=== PATIENT | male | born 1965 | race African-American/Black ===

== ENCOUNTER 2022-02-08 16:54 | Inpatient (IN) | payer BC ==
[~2022-02-08] VITALS: Ht 170.2 cm; Wt 90.7 kg
[2022-02-08 17:44] LABS: HEMATOCRIT 36.7 % (36.7-47.1); MEAN CORPUSCULAR HEMOGLOBIN 32.3 uug (23.8-33.4); MEAN CORPUSCULAR VOLUME 96.8 fL (73.0-96.2); PLATELET COUNT (AUTO) 108 K/uL (152-348)
[2022-02-08 17:50] LABS: CREATININE 1.6 mg/dL (0.6-1.3); POTASSIUM 4.2 mmol/L (3.5-5.1)
[2022-02-08 18:02] LABS: BILIRUBIN,TOTAL 0.8 mg/dL (0.2-1.0); TOTAL PROTEIN, SERUM 8.1 g/dL (6.4-8.2)
[2022-02-08] MEDS ORDERED: REMEDY ESSENTIAL ZINC PASTE 113 GM TP PRN (21:00)
[2022-02-08] MEDS ORDERED: ACETAMINOPHEN 325 MG TABLET PO PRN (21:00)
[2022-02-08] MEDS ORDERED: ASPIRIN 325 MG TABLET PO ONE (21:00)
[2022-02-08] MEDS ORDERED: NITROGLYCERIN 0.4 MG/TAB BOTTLE SL PRN (21:00)
[2022-02-08] MEDS ORDERED: HYDROCODONE/APAP 5-325MG TABLET PO PRN (21:00)
[2022-02-08] MEDS ORDERED: ONDANSETRON 4 MG/2 ML VIAL IV PRN (21:00)
[2022-02-08] MEDS ORDERED: TADA5TAB2 PO (22:07)
[2022-02-08] MEDS ORDERED: ATOR10TA PO (22:07)
[2022-02-08] MEDS ORDERED: CITA10TA17 PO (22:07)
[2022-02-08] MEDS ORDERED: TRAZ-182 PO (22:07)
[2022-02-08] MEDS ORDERED: CLOP75TA15 PO (22:07)
[2022-02-08 22:27] LABS: *BILIRUBIN,URIN 1+ (NEGATIVE); *BLOOD, URINE NEGATIVE (NEGATIVE); *CLARITY,URINE CLEAR (CLEAR); *COLOR,URINE DARK YELLOW (YELLOW); *KETONES,URINE NEGATIVE (NEGATIVE); LEUKOCYTE ESTERASE ,URINE NEGATIVE (NEGATIVE); NITRITE, URINE NEGATIVE (NEGATIVE); PH,URINE 5.5 (5.0-8.0); UGLUCOSE NEGATIVE (NEGATIVE)
[2022-02-09] MEDS: ASPIRIN 325 MG TABLET PO ONE ×2 (00:17→00:22)
[2022-02-09] MEDS: MORPHINE SULFATE 2 MG/1 ML DISP.SYRIN IV PRN ×5 (00:17→19:25)
[2022-02-09 01:00] VITALS: BP 155/87
[2022-02-09 01:16] LABS: FERRITIN 21 ng/mL (26-388)
[2022-02-09 04:00] VITALS: BP 131/72
[2022-02-09] MEDS: PANTOPRAZOLE SODIUM 40 MG TABLET.DR PO SCH (06:35)
[2022-02-09 07:30] LABS: HEMATOCRIT 36.6 % (36.7-47.1); MEAN CORPUSCULAR HEMOGLOBIN 32.2 uug (23.8-33.4); MEAN CORPUSCULAR VOLUME 96.4 fL (73.0-96.2); PLATELET COUNT (AUTO) 98 K/uL (152-348)
[2022-02-09 07:51] LABS: CREATININE 1.4 mg/dL (0.6-1.3); MAGNESIUM 1.5 mg/dL (1.8-2.4)
[2022-02-09 08:00] LABS: THYROID STIMULATING HORMONE 1.556 mIU/mL (0.358-3.740)
[2022-02-09] MEDS ORDERED: HEPARIN SODIUM,PORCINE 5,000 UNITS/ML VIAL SQ SCH (09:00)
[2022-02-09] MEDS ORDERED: ASPIRIN 81 MG TAB.CHEW PO SCH (09:00)
[2022-02-09] MEDS ORDERED: CITALOPRAM 10 MG TABLET PO SCH (09:00)
[2022-02-09] MEDS ORDERED: CLOPIDOGREL 75 MG TABLET PO SCH (09:00)
[2022-02-09] MEDS: MAGNESIUM SULFATE/D5W 100 ML IV SCH ×2 (10:27→11:41)
[2022-02-09] MEDS ORDERED: OMEP40CA21 PO (11:00)
[2022-02-09] MEDS ORDERED: ISOS60TA72 PO (11:00)
[2022-02-09] MEDS ORDERED: BUPR-319 PO (11:00)
[2022-02-09] MEDS ORDERED: AMLO-212 PO (11:00)
[2022-02-09] MEDS ORDERED: RANO10003 PO (11:00)
[2022-02-09] MEDS ORDERED: RISP1TAB7 PO (11:00)
[2022-02-09] MEDS ORDERED: PRAZ1CAP5 PO (11:00)
[2022-02-09] MEDS ORDERED: GABA300C PO (11:00)
[2022-02-09] MEDS ORDERED: BUPR1FIL5 SL (11:01)
[2022-02-09 11:02] VITALS: BP 104/56
[2022-02-09 11:07] LABS: *AMPHETAMINE, URINE NEGATIVE (NEGATIVE); *CANNABINOID, URINE NEGATIVE (NEGATIVE); *COCCAINE, URINE NEGATIVE (NEGATIVE); *OPIATE, URINE POSITIVE (NEGATIVE); *PHENCYCLIDINE SCREEN,URINE NEGATIVE (NEGATIVE)
[2022-02-09 15:09] VITALS: BP 109/49
[2022-02-09 16:21] LABS: EOSINOPHILS % (MANUAL) 4 % (0-8); LYMPHOCYTES % (MANUAL) 45 % (20-40); MONOCYTES % (MANUAL) 9 % (2-10); NEUTROPHILS % (MANUAL) 42 % (42-75)
[2022-02-09 20:00] VITALS: BP 104/62
[2022-02-09] MEDS ORDERED: ATORVASTATIN 10 MG TABLET PO SCH (21:00)
[2022-02-10] MEDS: MORPHINE SULFATE 2 MG/1 ML DISP.SYRIN IV PRN ×4 (00:33→18:03)
[2022-02-10 04:00] VITALS: BP 110/72
[2022-02-10] MEDS: PANTOPRAZOLE SODIUM 40 MG TABLET.DR PO SCH (06:09)
[2022-02-10 07:08] LABS: HEMATOCRIT 35.4 % (36.7-47.1); MEAN CORPUSCULAR HEMOGLOBIN 32.5 uug (23.8-33.4); PLATELET COUNT (AUTO) 84 K/uL (152-348)
[2022-02-10 07:25] LABS: CREATININE 1.4 mg/dL (0.6-1.3); MAGNESIUM 1.7 mg/dL (1.8-2.4)
[2022-02-10] MEDS ORDERED: CLOPIDOGREL 75 MG TABLET PO ONE (08:00)
[2022-02-10] MEDS ORDERED: CITALOPRAM 20 MG TABLET PO SCH (09:00)
[2022-02-10] MEDS: MAGNESIUM SULFATE/D5W 100 ML IV SCH ×2 (09:46→10:18)
[2022-02-10] MEDS ORDERED: CLOPIDOGREL 75 MG TABLET PO SCH (11:26)
[2022-02-10 12:07] VITALS: BP 103/53
[2022-02-10 16:06] VITALS: BP 107/45
[2022-02-10 20:00] VITALS: BP 108/56
[2022-02-11] MEDS ORDERED: CLOPIDOGREL 75 MG TABLET PO SCH (09:00)
== END 2022-02-10 20:50 | disposition short-term general hospital (02) | DRG 302 ==
LOC: ER 16:54 → TELE3 22:54 → MEDSURG3 02-09 14:46
PROC: 05H533Z Insertion of Infusion Device into Right Subclavian Vein, Percutaneous Approach (ICD-10-PCS; principal; 2022-02-09)
PROC: B546ZZA Ultrasonography of Right Subclavian Vein, Guidance (ICD-10-PCS; 2022-02-09)
DX: I25.110 Atherosclerotic heart disease of native coronary artery with unstable angina pectoris (principal); N17.0 Acute kidney failure with tubular necrosis; E78.5 Hyperlipidemia, unspecified; I11.0 Hypertensive heart disease with heart failure; Z20.822 Contact with and (suspected) exposure to COVID-19; Z95.1 Presence of aortocoronary bypass graft; E11.9 Type 2 diabetes mellitus without complications; I25.10 Atherosclerotic heart disease of native coronary artery without angina pectoris; E11.42 Type 2 diabetes mellitus with diabetic polyneuropathy; I50.9 Heart failure, unspecified
CPT/HCPCS: 36415; 70030-TC; 70450; 71045; 83550; 83735; 84100; 84443; 84484; 85025; 93005; 93307; 93880; 97161; A4663; A6209; A6213; C1758; G0378; J2270; J3475

== ENCOUNTER 2022-04-15 21:16 | Inpatient (IN) | payer BC ==
[~2022-04-15] VITALS: Ht 175.3 cm; Wt 90.5 kg
[~2022-04-15 21:16] MED LIST: AMLO-212 PO; ATOR10TA PO; BUPR-319 PO; BUPR1FIL5 SL; CITA10TA17 PO; CLOP75TA15 PO; GABA300C PO; ISOS60TA72 PO; OMEP40CA21 PO; PRAZ1CAP5 PO; RANO10003 PO; RISP1TAB7 PO; TADA5TAB2 PO; TRAZ-182 PO
[2022-04-15] MEDS ORDERED: NITROGLYCERIN 0.4 MG/TAB BOTTLE SL ONE (21:30)
[2022-04-15] MEDS ORDERED: NITROGLYCERIN OINT 1 GM PACKET TP ONE (21:30)
--- NOTE | 2022-04-15 21:40 | NUR ---
Pt. BIB [facility] from [facility] c/o on and of chest 8/10 pain, radiating to the left arm. Per paramedics performed EKG and noted NSTEMI. Paramedics admnistered 325mg of aspirin in the field. Pt has Hx of STEMI, HTN, DMII insulin dependent and multiple stents. Pt. c/o SOB upon arrival and placed on 3L Oxygen via nasal cannula. Pt. O2 saturation 99%. Denies N/V.
--- NOTE | 2022-04-15 21:42 | NUR ---
Dr. Mendoza at bedside. MSE in progress.
[2022-04-15] MEDS ORDERED: QUET50TA PO (21:43)
[2022-04-15] MEDS ORDERED: ROSU40TA PO (21:43)
[2022-04-15] MEDS ORDERED: INSU100I26 SQ (21:43)
[2022-04-15] MEDS ORDERED: INSU100V11 SQ (21:43)
[2022-04-15] MEDS ORDERED: THIA100T74 PO (21:43)
[2022-04-15] MEDS ORDERED: BUPR300T52 PO (21:43)
[2022-04-15] MEDS ORDERED: MORPHINE SULFATE 4 MG/1 ML DISP.SYRIN IV ONE (21:45)
[2022-04-15] MEDS ORDERED: ONDA4TAB11 PO (22:05)
--- NOTE | 2022-04-15 22:05 | NUR ---
Patient got up out of bed and right foot IV came out.
[2022-04-15 22:11] LABS: MEAN CORPUSCULAR HEMOGLOBIN 32.2 uug (23.8-33.4); MEAN CORPUSCULAR VOLUME 96.6 fL (73.0-96.2); PLATELET COUNT (AUTO) 69 K/uL (152-348)
[2022-04-15] MEDS ORDERED: LABETALOL HCL 100 MG TABLET PO ONE (22:15)
[2022-04-15 22:24] LABS: CARBON DIOXIDE 28 mmol/L (21-32); CHLORIDE 98 mmol/L (98-107); CREATININE 1.5 mg/dL (0.6-1.3); POTASSIUM 4.7 mmol/L (3.5-5.1); UREA NITROGEN, BLOOD 12 mg/dL (7-18)
[2022-04-15] MEDS ORDERED: MORPHINE SULFATE 4 MG/1 ML DISP.SYRIN ONE (22:32)
[2022-04-15] MEDS ORDERED: LABETALOL HCL 100 MG TABLET ONE (22:32)
[2022-04-15 22:35] LABS: ALANINE AMINOTRANSFERASE 85 U/L (16-63); ALKALINE PHOSPHATASE 284 U/L (50-136); ASPARTATE AMINOTRANSFERASE 47 U/L (15-37); BILIRUBIN,DIRECT 0.2 mg/dL (0.0-0.2); BILIRUBIN,TOTAL 0.4 mg/dL (0.2-1.0); TOTAL PROTEIN, SERUM 7.4 g/dL (6.4-8.2)
[2022-04-15 22:36] LABS: GLUCOSE 607 mg/dL (74-106)
--- NOTE | 2022-04-15 22:37 | NUR ---
Placed IV on left foot 24G.
--- NOTE | 2022-04-15 22:40 | NUR ---
Demetrice from [facility] called to verify patient's arrival. Contact information: [phone] ([place], [employer] #)
[2022-04-15] MEDS ORDERED: POTASSIUM CHLORIDE 20 MEQ TAB.PRT.SR PO ONE (22:45)
[2022-04-15] MEDS ORDERED: INSULIN REGULAR, HUMAN 300 UNIT/3 ML VIAL IV ONE (22:45)
[2022-04-15] MEDS ORDERED: POTASSIUM CHLORIDE 20 MEQ POWDER PACKET ONE (22:52)
[2022-04-15] MEDS ORDERED: INSULIN REGULAR, HUMAN 300 UNIT/3 ML VIAL ONE (22:54)
[2022-04-16 00:11] LABS: *AMPHETAMINE, URINE NEGATIVE (NEGATIVE); *CANNABINOID, URINE NEGATIVE (NEGATIVE); *COCCAINE, URINE NEGATIVE (NEGATIVE); *OPIATE, URINE POSITIVE (NEGATIVE); *PHENCYCLIDINE SCREEN,URINE NEGATIVE (NEGATIVE)
--- NOTE | 2022-04-16 00:56 | NUR ---
Called [facility] for panel call. Dr. Moon customer solutions specialist.
--- NOTE | 2022-04-16 01:00 | NUR ---
Called 3rd fl for TELE bed, given RM 321 (JAMES Sage).
--- NOTE | 2022-04-16 01:06 | NUR ---
Called [facility], Sherrie ([employer] of [employer]) made aware of patient's admission to hospital.
[2022-04-16] MEDS ORDERED: INSULIN REGULAR, HUMAN 300 UNITS/3 ML VIAL SQ PRN (02:00)
[2022-04-16] MEDS ORDERED: DEXTROSE 50% 50 ML DISP.SYRIN IV PRN (02:00)
[2022-04-16] MEDS ORDERED: MAGNESIUM HYDROXIDE 30 ML LIQUID UDC PO PRN (02:00)
[2022-04-16] MEDS ORDERED: ONDANSETRON 4 MG/2 ML VIAL IV PRN (02:00)
[2022-04-16] MEDS ORDERED: REMEDY ESSENTIAL ZINC PASTE 113 GM TP PRN (02:00)
[2022-04-16] MEDS ORDERED: MORPHINE SULFATE 4 MG/1 ML DISP.SYRIN ONE (02:28)
[2022-04-16] MEDS ORDERED: MORPHINE SULFATE 4 MG/1 ML DISP.SYRIN IV ONE (02:30)
--- NOTE | 2022-04-16 02:30 | NUR ---
Report given JAMES Sage.
--- NOTE | 2022-04-16 03:55 | NUR ---
Pt. admitted to TELE Room 321 under care of Sarai SMALL. Belongs List completed. Alona RAMIREZ aware of patients arrival.
--- NOTE | 2022-04-16 04:30 | NUR ---
Admitted 56 y/o male with dx of chest pain. Pain score of 7/10, radiating to left arm. AAOx4, ambulatory. On 2 LPM sating at 97%. Denies SOB. IV site on left foot 24 g intact and patent. Routine admissin done. Oriented pt to room. All needs attended. Safety precautions observed.
[2022-04-16] MEDS: PANTOPRAZOLE SODIUM 40 MG TABLET.DR PO SCH (06:10)
[2022-04-16] MEDS: MORPHINE SULFATE 2 MG/1 ML DISP.SYRIN IV PRN ×2 (06:11→10:53)
[2022-04-16] MEDS: BLOOD SUGAR DIAGNOSTIC 1 EACH STRIP VI SCH ×4 (06:35→21:04)
[2022-04-16 06:43] LABS: MEAN CORPUSCULAR HEMOGLOBIN 32.6 uug (23.8-33.4); MEAN CORPUSCULAR VOLUME 95.7 fL (73.0-96.2); PLATELET COUNT (AUTO) 74 K/uL (152-348)
[2022-04-16 06:45] VITALS: BP 104/65
[2022-04-16 07:05] LABS: CREATININE 1.4 mg/dL (0.6-1.3); MAGNESIUM 1.6 mg/dL (1.8-2.4); PHOSPHOROUS 5.5 mg/dL (2.5-4.9); POTASSIUM 4.7 mmol/L (3.5-5.1)
[2022-04-16 07:18] LABS: THYROID STIMULATING HORMONE 5.672 mIU/mL (0.358-3.740)
[2022-04-16] MEDS: buPROPion XL 150 MG TAB.SR.24H PO SCH (08:47)
[2022-04-16] MEDS: GABAPENTIN 300 MG CAPSULE PO SCH ×3 (08:48→18:17)
[2022-04-16] MEDS: ISOSORBIDE MONONITRATE 60 MG TAB.SR.24H PO SCH (08:48)
[2022-04-16] MEDS: RANOLAZINE 500 MG TAB.ER.12H PO SCH ×2 (08:48→20:58)
[2022-04-16] MEDS: THIAMINE HCL 100 MG TABLET PO SCH (08:49)
[2022-04-16] MEDS: CLOPIDOGREL 75 MG TABLET PO SCH (08:49)
[2022-04-16] MEDS: AMLODIPINE 5 MG TABLET PO SCH (08:51)
[2022-04-16] MEDS: METOPROLOL SUCCINATE XL 25 MG TAB.SR.24H PO SCH (08:52)
[2022-04-16] MEDS: CITALOPRAM 20 MG TABLET PO SCH (08:55)
[2022-04-16] MEDS ORDERED: Medication Not On Formulary EA (Tadalafil (Cialis) 5 MG) PO SCH (09:00)
[2022-04-16] MEDS: INSULIN REGULAR, HUMAN 300 UNIT/3 ML VIAL SQ PRN ×2 (09:04→12:50)
[2022-04-16 10:22] VITALS: BP 96/45
[2022-04-16] MEDS: MAGNESIUM SULFATE/D5W 100 ML IV SCH ×2 (10:51→12:42)
[2022-04-16] MEDS ORDERED: CARV25TA2 PO (12:10)
[2022-04-16] MEDS ORDERED: CLON0.1T PO (12:10)
[2022-04-16] MEDS ORDERED: HYDR-3895 PO (12:10)
[2022-04-16] MEDS ORDERED: FOLI1TAB94 PO (12:10)
[2022-04-16] MEDS ORDERED: OMEG1CAP40 PO (12:10)
[2022-04-16 15:56] VITALS: BP 98/55
[2022-04-16] MEDS ORDERED: TRAZODONE 50 MG TABLET PO SCH (18:00)
[2022-04-16] MEDS ORDERED: QUETIAPINE FUMARATE 25 MG TABLET PO SCH (18:00)
[2022-04-16] MEDS ORDERED: ATORVASTATIN 10 MG TABLET PO SCH (18:00)
[2022-04-16 20:00] VITALS: BP 104/56
[2022-04-16] MEDS ORDERED: ATORVASTATIN 40 MG TABLET PO SCH (21:00)
[2022-04-16] MEDS ORDERED: TRAZODONE 100 MG TABLET PO SCH (21:00)
[2022-04-16] MEDS ORDERED: PRAZOSIN HCL 1 MG CAPSULE PO SCH (21:00)
[2022-04-16] MEDS ORDERED: risperiDONE 1 MG TABLET PO SCH (21:00)
[2022-04-16] MEDS: MORPHINE SULFATE 4 MG/1 ML DISP.SYRIN IV PRN (21:17)
[2022-04-17] VITALS: BP 97/58
[2022-04-17] MEDS: MORPHINE SULFATE 4 MG/1 ML DISP.SYRIN IV PRN (03:48)
[2022-04-17 04:00] VITALS: BP 123/65
[2022-04-17 05:23] VITALS: BP 123/65
[2022-04-17 07:01] LABS: CREATININE 1.6 mg/dL (0.6-1.3); MAGNESIUM 1.6 mg/dL (1.8-2.4); POTASSIUM 6.1 mmol/L (3.5-5.1)
--- NOTE | 2022-04-17 07:01 | NUR ---
Patient slept well, no acute distress noted. Still complain of chest pain, IV morphine given with good effect. Needs assessed and attended to. Call light within reach.
[2022-04-17] MEDS: PANTOPRAZOLE SODIUM 40 MG TABLET.DR PO SCH (07:05)
[2022-04-17] MEDS: BLOOD SUGAR DIAGNOSTIC 1 EACH STRIP VI SCH ×2 (07:12→11:07)
[2022-04-17] MEDS: INSULIN REGULAR, HUMAN 300 UNIT/3 ML VIAL SQ PRN ×2 (08:32→11:09)
[2022-04-17] MEDS ORDERED: MAGNESIUM SULFATE/D5W 100 ML IV SCH (08:45)
[2022-04-17] MEDS: GABAPENTIN 300 MG CAPSULE PO SCH ×2 (08:56→12:48)
[2022-04-17] MEDS: THIAMINE HCL 100 MG TABLET PO SCH (08:56)
[2022-04-17] MEDS: CLOPIDOGREL 75 MG TABLET PO SCH (08:57)
[2022-04-17] MEDS: CITALOPRAM 20 MG TABLET PO SCH (08:57)
[2022-04-17] MEDS: buPROPion XL 150 MG TAB.SR.24H PO SCH (08:58)
[2022-04-17] MEDS: ISOSORBIDE MONONITRATE 60 MG TAB.SR.24H PO SCH (09:05)
[2022-04-17] MEDS: AMLODIPINE 5 MG TABLET PO SCH (09:05)
[2022-04-17] MEDS: METOPROLOL SUCCINATE XL 25 MG TAB.SR.24H PO SCH (09:06)
[2022-04-17] MEDS: RANOLAZINE 500 MG TAB.ER.12H PO SCH (09:58)
[2022-04-17] MEDS ORDERED: SODIUM POLYSTYRENE SULFONATE 15 G/60 ML LIQUID UDC PO ONE (10:30)
[2022-04-17 11:16] LABS: CREATININE 1.4 mg/dL (0.6-1.3); POTASSIUM 4.7 mmol/L (3.5-5.1)
[2022-04-17 11:46] VITALS: BP 113/63
--- NOTE | 2022-04-17 15:30 | NUR ---
Pt. discharged to [facility]. Noted to be stable upon the discharge. No acute distress noted. IV lines removed. No c/o chest pain. All belonging returned to the pt.
== END 2022-04-17 15:30 | disposition home or self-care (01) | DRG 302 ==
LOC: ER 21:18 → TELE3 04-16 00:56
PROVIDERS: ADMIT Nurse Practitioner Acute Care; ATTEND Nurse Practitioner Acute Care
PROC: 05H533Z Insertion of Infusion Device into Right Subclavian Vein, Percutaneous Approach (ICD-10-PCS; principal; 2022-04-16)
PROC: B546ZZA Ultrasonography of Right Subclavian Vein, Guidance (ICD-10-PCS; 2022-04-16)
DX: I25.10 Atherosclerotic heart disease of native coronary artery without angina pectoris (principal); N17.0 Acute kidney failure with tubular necrosis; I13.0 Hypertensive heart and chronic kidney disease with heart failure and stage 1 through stage 4 chronic kidney disease, or unspecified chronic kidney disease; E11.65 Type 2 diabetes mellitus with hyperglycemia; E66.9 Obesity, unspecified; E83.42 Hypomagnesemia; F32.A Depression, unspecified; N18.9 Chronic kidney disease, unspecified; I50.33 Acute on chronic diastolic (congestive) heart failure; I25.2 Old myocardial infarction; Z76.5 Malingerer [conscious simulation]; Z95.1 Presence of aortocoronary bypass graft; I35.1 Nonrheumatic aortic (valve) insufficiency; E78.5 Hyperlipidemia, unspecified; R74.01 Elevation of levels of liver transaminase levels; E11.40 Type 2 diabetes mellitus with diabetic neuropathy, unspecified; E11.22 Type 2 diabetes mellitus with diabetic chronic kidney disease; Z95.5 Presence of coronary angioplasty implant and graft; Z91.199 Patient's noncompliance with other medical treatment and regimen due to unspecified reason; F29 Unspecified psychosis not due to a substance or known physiological condition; Z68.29 Body mass index [BMI] 29.0-29.9, adult; Z20.822 Contact with and (suspected) exposure to COVID-19; F11.11 Opioid abuse, in remission
CPT/HCPCS: 36415; 71045; 83735; 84100; 84443; 84484; 85025; 93005; A4663; G0378; J1815; J2270; J3475; J7040

== ENCOUNTER 2022-06-11 17:12 | Inpatient (IN) | payer BC ==
[~2022-06-11] VITALS: Ht 175.3 cm; Wt 91.4 kg
[~2022-06-11 17:12] MED LIST changes: -ATOR10TA PO; -BUPR-319 PO; +BUPR300T52 PO; +CARV25TA2 PO; +CLON0.1T PO; +FOLI1TAB94 PO; +HYDR-3895 PO; +INSU100I26 SQ; +INSU100V11 SQ; +OMEG1CAP40 PO; +ONDA4TAB11 PO; +QUET50TA PO; +ROSU40TA PO; +THIA100T74 PO
[2022-06-11 17:56] LABS: CARBON DIOXIDE 23 mmol/L (21-32); CHLORIDE 103 mmol/L (98-107); CREATININE 1.5 mg/dL (0.6-1.3); GLUCOSE 261 mg/dL (74-106); POTASSIUM 4.5 mmol/L (3.5-5.1); UREA NITROGEN, BLOOD 18 mg/dL (7-18)
--- NOTE | 2022-06-11 18:00 | NUR ---
Pt arrived in the ED w/ c/o CP, 12/19 started 3pm today. Seen by Dr. Medel for MSE.
[2022-06-11 18:09] LABS: ALANINE AMINOTRANSFERASE 99 U/L (16-63); ALKALINE PHOSPHATASE 161 U/L (50-136); ASPARTATE AMINOTRANSFERASE 74 U/L (15-37); BILIRUBIN,DIRECT 0.1 mg/dL (0.0-0.2); BILIRUBIN,TOTAL 0.3 mg/dL (0.2-1.0); TOTAL PROTEIN, SERUM 8.2 g/dL (6.4-8.2)
[2022-06-11 18:26] LABS: NUCLEATED RED BLOOD CELLS 0.1 /100WBC
--- NOTE | 2022-06-11 18:26 | NUR ---
Pt is hardstick, tried to place an IV line x4 by 2 RNs.
[2022-06-11 18:43] LABS: HEMATOCRIT 37.7 % (36.7-47.1); MEAN CORPUSCULAR VOLUME 97.2 fL (73.0-96.2)
--- NOTE | 2022-06-11 18:44 | NUR ---
Called supervisor shipping Denisha and requested midline insertion. made aware.
[2022-06-11 18:45] LABS: PLATELET COUNT (AUTO) 94 K/uL (152-348)
[2022-06-11 18:47] LABS: NEUTROPHILS % (MANUAL) 0 % (42-75)
--- NOTE | 2022-06-11 19:15 | NUR ---
Endorsed to Doreen RAMIREZ.
[2022-06-11] MEDS ORDERED: PRAZOSIN HCL 1 MG CAPSULE PO SCH (21:00)
[2022-06-11] MEDS ORDERED: risperiDONE 1 MG TABLET PO SCH (21:00)
[2022-06-11] MEDS ORDERED: HYDROXYZINE PAMOATE 25 MG CAPSULE PO PRN (21:00)
[2022-06-11] MEDS ORDERED: CLONIDINE HCL 0.1 MG TABLET PO PRN (21:00)
--- NOTE | 2022-06-11 21:51 | NUR ---
Report given to third floor Sabina RAMIREZ. Patient will be going to third floor room 322
[2022-06-11] MEDS ORDERED: TRAZODONE 50 MG TABLET PO SCH (22:00)
--- NOTE | 2022-06-11 22:05 | NUR ---
Admitted a 56 years old male with Dx of Chest pain. Patient AAOx4. In no apparent distress. Denies any SOB. Complain of pressure pain on left upper chest that radiates to left arm. Patient with no IV access at this time. For Midline placement in AM. Will try to place IV. Routine admission care done. Plan of care initiated. Safety measure initiated and call light within reached. Addendum: 06/12/22 at 0049 by CALIXTO SMALL RN NSR on tele with HR of 73/min
--- NOTE | 2022-06-11 22:10 | NUR ---
Patient taken via gurney to third floor room 322 with personal belongings. Patient in stable condition, no signs of distress. Sabina RN aware of patient's arrival.
[2022-06-11 22:17] VITALS: BP 141/66
[2022-06-11] MEDS ORDERED: TEMAZEPAM 15 MG CAPSULE PO PRN (22:30)
[2022-06-11] MEDS ORDERED: ACETAMINOPHEN 325 MG TABLET PO PRN (22:30)
[2022-06-11] MEDS ORDERED: ONDANSETRON 4 MG/2 ML VIAL IV PRN (22:30)
[2022-06-11] MEDS ORDERED: PRAZOSIN HCL 1 MG CAPSULE ONE (22:32)
[2022-06-11] MEDS: HYDROMORPHONE 1 MG/1 ML DISP.SYRIN IV PRN (23:45)
[2022-06-12] VITALS: BP 134/62
[2022-06-12] MEDS: HYDROMORPHONE 1 MG/1 ML DISP.SYRIN IV PRN (03:50)
[2022-06-12 04:00] VITALS: BP 109/51
--- NOTE | 2022-06-12 05:37 | NUR ---
Dilaudid 1mg via IV given for complain of pain and effective. IV site on right thumb area remains intact and patent. Needs attended to and met. Safety measure maintained and call light within reached.
--- NOTE | 2022-06-12 05:40 | NUR ---
NSR on tele with HR of 71/min.
[2022-06-12] MEDS ORDERED: PANTOPRAZOLE SODIUM 40 MG TABLET.DR PO SCH (07:00)
--- NOTE | 2022-06-12 08:00 | NUR ---
RECEIVED PATIENT AT START OF SHIFT ALERT AND ORIENTED X4 NO SIGNS OF RESPIRATORY DISTRESS NOTED. PATIENT WAS GIVEN MEDICATION ORDERED NO SIGNS OF ADVERSE REACTION FROM MEDICATION.. WILL CONTINUE TO MONITOR FOR FALL AND SAFETY.
[2022-06-12 08:01] LABS: HEMATOCRIT 33.4 % (36.7-47.1); MEAN CORPUSCULAR HEMOGLOBIN 31.9 uug (23.8-33.4); MEAN CORPUSCULAR VOLUME 94.8 fL (73.0-96.2); PLATELET COUNT (AUTO) 81 K/uL (152-348)
[2022-06-12 08:10] LABS: THYROID STIMULATING HORMONE 5.057 mIU/mL (0.358-3.740)
[2022-06-12 08:23] LABS: BILIRUBIN,TOTAL 0.3 mg/dL (0.2-1.0); CREATININE 1.3 mg/dL (0.6-1.3); MAGNESIUM 1.8 mg/dL (1.8-2.4); PHOSPHOROUS 4.1 mg/dL (2.5-4.9); POTASSIUM 4.4 mmol/L (3.5-5.1); TOTAL PROTEIN, SERUM 7.2 g/dL (6.4-8.2)
[2022-06-12] MEDS ORDERED: ATORVASTATIN 40 MG TABLET PO SCH (09:00)
[2022-06-12] MEDS ORDERED: buPROPion XL 150 MG TAB.SR.24H PO SCH (09:00)
[2022-06-12] MEDS ORDERED: CITALOPRAM 10 MG TABLET PO SCH (09:00)
[2022-06-12] MEDS ORDERED: RANOLAZINE 500 MG TAB.ER.12H PO SCH (09:00)
[2022-06-12] MEDS ORDERED: ISOSORBIDE MONONITRATE 60 MG TAB.SR.24H PO SCH (09:00)
[2022-06-12] MEDS ORDERED: Medication Not On Formulary EA (Tadalafil (Cialis) 5 MG) PO SCH (09:00)
[2022-06-12] MEDS ORDERED: AMLODIPINE 5 MG TABLET PO SCH (09:00)
[2022-06-12] MEDS ORDERED: CLOPIDOGREL 75 MG TABLET PO SCH (09:00)
[2022-06-12] MEDS ORDERED: FOLIC ACID 1 MG TABLET PO SCH (09:00)
[2022-06-12] MEDS ORDERED: OMEGA-3 FATTY ACIDS/FISH OIL CAPSULE PO SCH (09:00)
[2022-06-12] MEDS ORDERED: CARVEDILOL 25 MG TABLET PO SCH (09:00)
[2022-06-12] MEDS: GABAPENTIN 300 MG CAPSULE PO SCH ×2 (09:25→13:00)
[2022-06-12 11:23] VITALS: BP 105/53
--- NOTE | 2022-06-12 13:00 | NUR ---
PATIENT CALLED NURSE AND SAID DR DISCHARGED HIM.CHECKED ORDERS PATIENT SCHEDULED DISCHARGED. PATIENT EXPLAINED FOLLOW-UP CARE AND SIGNED DISCHARGED ORDERS. PATIENT ACCOMPANIED TO AWAITING VEHICLE AND ACCOMPANIED TO VEHICLE BY NURSE NEGRA. NO SIGNS OF RESPIRATORY DISTRESS NOTED. TELE BOX AND IV LINES REMOVE AND DRESSING APPLIED.
== END 2022-06-12 13:10 | disposition home or self-care (01) | DRG 302 ==
LOC: ER 17:14 → TELE3 21:53
PROVIDERS: ADMIT Nurse Practitioner Family; ATTEND Nurse Practitioner Family
PROC: 05H633Z Insertion of Infusion Device into Left Subclavian Vein, Percutaneous Approach (ICD-10-PCS; principal; 2022-06-12)
PROC: B547ZZA Ultrasonography of Left Subclavian Vein, Guidance (ICD-10-PCS; 2022-06-12)
DX: I25.10 Atherosclerotic heart disease of native coronary artery without angina pectoris (principal); N17.0 Acute kidney failure with tubular necrosis; I50.32 Chronic diastolic (congestive) heart failure; I13.0 Hypertensive heart and chronic kidney disease with heart failure and stage 1 through stage 4 chronic kidney disease, or unspecified chronic kidney disease; Z95.5 Presence of coronary angioplasty implant and graft; I25.2 Old myocardial infarction; E66.9 Obesity, unspecified; E78.5 Hyperlipidemia, unspecified; F32.A Depression, unspecified; N18.9 Chronic kidney disease, unspecified; Z76.5 Malingerer [conscious simulation]; Z79.4 Long term (current) use of insulin; Z95.1 Presence of aortocoronary bypass graft; E11.22 Type 2 diabetes mellitus with diabetic chronic kidney disease; Z20.822 Contact with and (suspected) exposure to COVID-19; I35.1 Nonrheumatic aortic (valve) insufficiency; Z68.29 Body mass index [BMI] 29.0-29.9, adult; R74.01 Elevation of levels of liver transaminase levels; F29 Unspecified psychosis not due to a substance or known physiological condition; E11.40 Type 2 diabetes mellitus with diabetic neuropathy, unspecified; F11.90 Opioid use, unspecified, uncomplicated
CPT/HCPCS: 36415; 70030-TC; 71045; 83550; 83735; 84100; 84443; 84484; 85025; 93005; G0378; J1170

== ENCOUNTER 2022-08-01 21:13 | Emergency (ER) | payer BC ==
--- NOTE | 2022-08-01 21:30 | NUR ---
CALLED PATIENT'S NAME IN WAITING ROOM, NO RESPONSE.
--- NOTE | 2022-08-01 21:45 | NUR ---
CALLED PATIENT'S NAME IN WAITING ROOM, NO RESPONSE.
--- NOTE | 2022-08-01 22:05 | NUR ---
CALLED PATIENT'S NAME IN WAITING ROOM, NO RESPONSE.
== END 2022-08-01 22:08 | disposition left against medical advice (07) ==
LOC: ER 21:30
DX: Z53.21 Procedure and treatment not carried out due to patient leaving prior to being seen by health care provider (principal)
CPT/HCPCS: 93005

== ENCOUNTER 2022-08-03 02:29 | Inpatient (IN) | payer BC ==
[~2022-08-03] VITALS: Ht 175.3 cm; Wt 95.3 kg
--- NOTE | 2022-08-03 02:35 | NUR ---
Dr. Mendoza at bedside for MSE.
[2022-08-03] MEDS ORDERED: MORPHINE SULFATE 10 MG/1 ML DISP.SYRIN IM ONE (02:45)
--- NOTE | 2022-08-03 02:48 | NUR ---
Xray at bedside.
[2022-08-03] MEDS ORDERED: HYDROMORPHONE HCL 2 MG TABLET ONE (02:52)
[2022-08-03] MEDS ORDERED: HYDROMORPHONE HCL 2 MG TABLET PO ONE (03:00)
[2022-08-03 03:18] LABS: MEAN CORPUSCULAR HEMOGLOBIN 30.9 uug (23.8-33.4); MEAN CORPUSCULAR VOLUME 93.4 fL (73.0-96.2); PLATELET COUNT (AUTO) 83 K/uL (152-348)
[2022-08-03 03:39] LABS: ALANINE AMINOTRANSFERASE 85 U/L (16-63); ALKALINE PHOSPHATASE 288 U/L (50-136); ASPARTATE AMINOTRANSFERASE 113 U/L (15-37); BILIRUBIN,TOTAL 0.6 mg/dL (0.2-1.0); CARBON DIOXIDE 27 mmol/L (21-32); CHLORIDE 97 mmol/L (98-107); CREATININE 1.5 mg/dL (0.6-1.3); TOTAL PROTEIN, SERUM 8.6 g/dL (6.4-8.2); UREA NITROGEN, BLOOD 30 mg/dL (7-18)
[2022-08-03 03:50] LABS: GLUCOSE 385 mg/dL (74-106); POTASSIUM 13.3 mmol/L (3.5-5.1)
[2022-08-03 04:05] LABS: BILIRUBIN,DIRECT < 0.1 mg/dL (0.0-0.2)
--- NOTE | 2022-08-03 04:22 | NUR ---
Right upper arm hep lock infiltrated,IV removed. Catheter intact and site benign. Pressure and 4x4 gauze applied to site. No bleeding noted.
[2022-08-03 04:28] LABS: EOSINOPHILS % (MANUAL) 1 % (0-8); LYMPHOCYTES % (MANUAL) 47 % (20-40); MONOCYTES % (MANUAL) 9 % (2-10); NEUTROPHILS % (MANUAL) 43 % (42-75)
[2022-08-03 04:43] LABS: CREATININE 1.6 mg/dL (0.6-1.3); POTASSIUM 4.9 mmol/L (3.5-5.1)
--- NOTE | 2022-08-03 04:48 | NUR ---
Informed ER MD of BS: 393 and potassium :4.9 at this time.
--- NOTE | 2022-08-03 04:50 | NUR ---
Called [facility] to page Dr. Bonilla.
--- NOTE | 2022-08-03 04:55 | NUR ---
Dr. Mendoza on panel call with Dr. Bonilla.
[2022-08-03] MEDS ORDERED: hydrALAZINE HCL 20 MG/1 ML VIAL IV PRN (05:00)
[2022-08-03] MEDS ORDERED: ONDANSETRON 4 MG/2 ML VIAL IV PRN (05:00)
[2022-08-03] MEDS ORDERED: MORPHINE SULFATE 2 MG/1 ML DISP.SYRIN IVP PRN (05:00)
[2022-08-03] MEDS ORDERED: INSULIN REGULAR, HUMAN 300 UNITS/3 ML VIAL SQ PRN (05:00)
[2022-08-03] MEDS ORDERED: DEXTROSE 50% 50 ML DISP.SYRIN IV PRN (05:00)
[2022-08-03] MEDS ORDERED: HYDROXYZINE PAMOATE 25 MG CAPSULE PO PRN (05:00)
[2022-08-03] MEDS ORDERED: ACETAMINOPHEN 325 MG TABLET PO PRN (05:00)
[2022-08-03] MEDS ORDERED: CLONIDINE HCL 0.1 MG TABLET PO PRN (05:00)
--- NOTE | 2022-08-03 06:18 | NUR ---
Report given to Martha RAMIREZ Tele.
[2022-08-03 07:17] VITALS: BP 130/67
[2022-08-03 07:46] VITALS: BP 124/69
--- NOTE | 2022-08-03 07:52 | NUR ---
Patient have been admitted on MS unit from ER. Patient arrived with transporter on a wheelchair AAOX4. Patient denied any acute SOB, chest pain. Vitals signs are within normal range. No behavior issued observed. Report giving to on coming nurse. He is now resting in his room. Will continue to monitor patient for safety.
[2022-08-03] MEDS: BLOOD SUGAR DIAGNOSTIC 1 EACH STRIP VI SCH ×2 (08:11→11:21)
[2022-08-03 08:30] VITALS: BP 123/62
[2022-08-03] MEDS: INSULIN REGULAR, HUMAN 300 UNIT/3 ML VIAL SQ PRN ×2 (08:31→11:25)
[2022-08-03] MEDS ORDERED: GABAPENTIN 300 MG CAPSULE PO SCH (09:00)
[2022-08-03] MEDS ORDERED: CARVEDILOL 25 MG TABLET PO SCH (09:00)
[2022-08-03] MEDS ORDERED: PANTOPRAZOLE SODIUM 40 MG TABLET.DR PO SCH (09:00)
[2022-08-03] MEDS ORDERED: THIAMINE HCL 100 MG TABLET PO SCH (09:00)
[2022-08-03] MEDS ORDERED: Medication Not On Formulary EA (Rosuvastatin Calcium (Crestor) 1 TAB) PO SCH (09:00)
[2022-08-03] MEDS ORDERED: CITALOPRAM 10 MG TABLET PO SCH (09:00)
[2022-08-03] MEDS ORDERED: AMLODIPINE 5 MG TABLET PO SCH (09:00)
[2022-08-03] MEDS ORDERED: Medication Not On Formulary EA (Omeprazole 40 MG) PO SCH (09:00)
[2022-08-03] MEDS ORDERED: CLOPIDOGREL 75 MG TABLET PO SCH (09:00)
[2022-08-03] MEDS ORDERED: Medication Not On Formulary EA (Omega-3 Fatty Acids/Fish Oil (Omega 3 1,000 Mg Softgel) PO SCH (09:00)
[2022-08-03] MEDS ORDERED: ISOSORBIDE MONONITRATE 60 MG TAB.SR.24H PO SCH (09:00)
[2022-08-03] MEDS ORDERED: HEPARIN SODIUM,PORCINE 5,000 UNITS/ML VIAL SQ SCH (09:00)
[2022-08-03] MEDS ORDERED: FOLIC ACID 1 MG TABLET PO SCH (09:00)
--- NOTE | 2022-08-03 09:00 | NUR ---
Received pt. lying in bed awake, alert and oriented. Pt. with IV site on right forearm g.22 intact and patent. Pt. on room air saturating at 98%. Complaining of chest pain, pain score of 8 Morphine 2mg IV given as ordered. Started new medications, tolerated well. Kept pt. comfortable and rested. Closely monitored Midline nurse came and inserted IV line g. 18 on Right AC.
[2022-08-03 11:49] VITALS: BP 114/61
--- NOTE | 2022-08-03 12:30 | NUR ---
Seen and examined by Dr. East with orders made and carried out. Discharged order done
--- NOTE | 2022-08-03 12:40 | NUR ---
Patient for discharge removed 2 IV catheter on right forearm and right AC. Tele monitor removed. Given and instructed discharged summary. Answered all questions, verbalize understanding. Vital signs stable, patient in good condition. Assisted patient going down the elevator, ambulatory. Discharged pt. at 1345H
[2022-08-03] MEDS ORDERED: TRAZODONE 50 MG TABLET PO SCH (18:00)
[2022-08-03] MEDS ORDERED: risperiDONE 1 MG TABLET PO SCH (21:00)
[2022-08-03] MEDS ORDERED: PRAZOSIN HCL 1 MG CAPSULE PO SCH (21:00)
== END 2022-08-03 13:45 | disposition home or self-care (01) | DRG 302 ==
LOC: ER 02:29 → TELE3 05:03
PROVIDERS: ADMIT Internal Medicine; ATTEND Nurse Practitioner Acute Care
PROC: 05HB33Z Insertion of Infusion Device into Right Basilic Vein, Percutaneous Approach (ICD-10-PCS; principal; 2022-08-03)
DX: I25.119 Atherosclerotic heart disease of native coronary artery with unspecified angina pectoris (principal); N17.0 Acute kidney failure with tubular necrosis; E87.1 Hypo-osmolality and hyponatremia; I25.10 Atherosclerotic heart disease of native coronary artery without angina pectoris; I25.2 Old myocardial infarction; I10 Essential (primary) hypertension; R74.01 Elevation of levels of liver transaminase levels; E11.40 Type 2 diabetes mellitus with diabetic neuropathy, unspecified; E66.01 Morbid (severe) obesity due to excess calories; E11.65 Type 2 diabetes mellitus with hyperglycemia; Z88.6 Allergy status to analgesic agent; Z95.1 Presence of aortocoronary bypass graft; Z95.5 Presence of coronary angioplasty implant and graft; Z79.899 Other long term (current) drug therapy; Z88.1 Allergy status to other antibiotic agents; G89.4 Chronic pain syndrome; Z68.31 Body mass index [BMI] 31.0-31.9, adult; Z79.4 Long term (current) use of insulin; E78.5 Hyperlipidemia, unspecified; Z79.02 Long term (current) use of antithrombotics/antiplatelets
CPT/HCPCS: 36415; 70030-TC; 71045; 84484; 85025; 93005; 93307; A4663; G0378; J1815; J2270

== ENCOUNTER 2022-08-23 19:05 | Inpatient (IN) | payer BC ==
[~2022-08-23] VITALS: Ht 175.3 cm; Wt 94.8 kg
[2022-08-23] MEDS ORDERED: HYDROMORPHONE HCL 2 MG TABLET PO ONE (19:30)
[2022-08-23] MEDS ORDERED: diphenhydrAMINE 50 MG CAPSULE PO ONE (19:30)
[2022-08-23] MEDS ORDERED: ONDANSETRON ODT 4 MG TAB.RAPDIS SL ONE (19:30)
[2022-08-23 19:52] LABS: HEMATOCRIT 35.9 % (36.7-47.1); MEAN CORPUSCULAR HEMOGLOBIN 30.5 uug (23.8-33.4); MEAN CORPUSCULAR VOLUME 93.1 fL (73.0-96.2); PLATELET COUNT (AUTO) 121 K/uL (152-348)
[2022-08-23] MEDS ORDERED: diphenhydrAMINE 50 MG CAPSULE ONE (20:27)
[2022-08-23] MEDS ORDERED: ONDANSETRON ODT 4 MG TAB.RAPDIS ONE (20:27)
[2022-08-23] MEDS ORDERED: HYDROMORPHONE HCL 2 MG TABLET ONE (20:27)
[2022-08-23 20:29] LABS: CARBON DIOXIDE 30 mmol/L (21-32); CHLORIDE 94 mmol/L (98-107); CREATININE 1.6 mg/dL (0.6-1.3); UREA NITROGEN, BLOOD 16 mg/dL (7-18)
--- NOTE | 2022-08-23 20:29 | NUR ---
Lab called, glucose is 407- MD notified.
[2022-08-23 20:31] LABS: GLUCOSE 407 mg/dL (74-106)
--- NOTE | 2022-08-23 20:39 | NUR ---
Benadryl 50mg capsule, Dilaudid 4mg tablet charted under Claudette Herrera RN, but was administered by myself. Zofran patient refusal charted under Claudette Herrera RN, but was preformed by myself.
[2022-08-23 20:43] LABS: ALANINE AMINOTRANSFERASE 107 U/L (16-63); ALKALINE PHOSPHATASE 155 U/L (50-136); ASPARTATE AMINOTRANSFERASE 77 U/L (15-37); BILIRUBIN,DIRECT 0.3 mg/dL (0.0-0.2); BILIRUBIN,TOTAL 0.7 mg/dL (0.2-1.0); TOTAL PROTEIN, SERUM 8.6 g/dL (6.4-8.2)
--- NOTE | 2022-08-23 21:51 | NUR ---
Called [facility] for panel call, GEOVANNY Moon delivery consultant.
--- NOTE | 2022-08-24 00:24 | NUR ---
3rd floor called and gave report to Sabina RAMIREZ.
[2022-08-24] MEDS ORDERED: ONDANSETRON 4 MG/2 ML VIAL IV PRN (01:00)
[2022-08-24] MEDS ORDERED: MAGNESIUM HYDROXIDE 30 ML LIQUID UDC PO PRN (01:00)
[2022-08-24] MEDS ORDERED: REMEDY ESSENTIAL ZINC PASTE 113 GM TP PRN (01:00)
[2022-08-24] MEDS ORDERED: NITROGLYCERIN 0.4 MG/TAB BOTTLE SL PRN (01:00)
[2022-08-24] MEDS ORDERED: ACETAMINOPHEN 325 MG TABLET PO PRN (01:00)
[2022-08-24] MEDS ORDERED: INSULIN REGULAR, HUMAN 300 UNITS/3 ML VIAL SQ PRN (01:00)
[2022-08-24] MEDS ORDERED: ZOLPIDEM 5 MG TABLET PO PRN (01:00)
[2022-08-24] MEDS ORDERED: HYDROCODONE/APAP 5-325MG TABLET PO PRN (01:00)
[2022-08-24] MEDS ORDERED: DEXTROSE 50% 50 ML DISP.SYRIN IV PRN (01:00)
--- NOTE | 2022-08-24 01:20 | NUR ---
Admitted a 57 years old male with Dx of Chest Pain. Patient AAOX4. In no acute distress. Denies any SOB. Complain of chest pain radiating on his left arm described as pressure pain with a scale of 8/10. Per patient he is able to tolerated pain up to 8/10. No IV site at this time. Will have midline insertion, Vehicle Upholsterer/Benedict made aware and states understanding. NSR on tele with HR 75/min. Routine admission care done. Plan of care initiated. Safety measure initiated and call light within reached.
--- NOTE | 2022-08-24 01:25 | NUR ---
Pt was transferred to third floor via wheelchair. JAMES Muhammad made aware of patient's arrival.
[2022-08-24] MEDS: HYDROMORPHONE HCL 2 MG TABLET PO PRN ×2 (01:56→09:57)
[2022-08-24 05:26] VITALS: BP 128/60
--- NOTE | 2022-08-24 06:27 | NUR ---
Slept well after admission. Dilaudid given for pain and effective. NSR on tele with HR of 71/min. Needs attended to and met. Safety measure maintained and call light within reached.
[2022-08-24] MEDS: BLOOD SUGAR DIAGNOSTIC 1 EACH STRIP VI SCH ×4 (06:43→21:03)
[2022-08-24] MEDS: INSULIN REGULAR, HUMAN 300 UNIT/3 ML VIAL SQ PRN ×3 (07:54→16:15)
[2022-08-24 08:35] LABS: HEMATOCRIT 35.1 % (36.7-47.1); MEAN CORPUSCULAR HEMOGLOBIN 30.3 uug (23.8-33.4); MEAN CORPUSCULAR VOLUME 91.8 fL (73.0-96.2); PLATELET COUNT (AUTO) 119 K/uL (152-348)
[2022-08-24] MEDS ORDERED: PANTOPRAZOLE SODIUM 40 MG VIAL IV SCH (09:00)
[2022-08-24] MEDS ORDERED: ASPIRIN 81 MG TAB.CHEW GT SCH (09:00)
[2022-08-24 09:01] LABS: CREATININE 1.3 mg/dL (0.6-1.3); MAGNESIUM 1.4 mg/dL (1.8-2.4); PHOSPHOROUS 3.7 mg/dL (2.5-4.9); POTASSIUM 4.1 mmol/L (3.5-5.1)
[2022-08-24] MEDS: PANTOPRAZOLE SODIUM 40 MG TABLET.DR PO SCH (09:56)
[2022-08-24] MEDS ORDERED: CLINDAMYCIN PHOSPHATE IV 600 MG in IV DEXTROSE 5% 100 ML IV SCH (11:00)
[2022-08-24] MEDS ORDERED: HYDROMORPHONE 1 MG/1 ML DISP.SYRIN IV PRN (11:00)
[2022-08-24] MEDS: GABAPENTIN 300 MG CAPSULE PO SCH ×3 (11:19→16:08)
[2022-08-24] MEDS ORDERED: CLINDAMYCIN PHOSPHATE IV SCH (11:30)
[2022-08-24] MEDS ORDERED: NORMAL SALINE IV SCH (11:30)
[2022-08-24 12:00] VITALS: BP 129/55
[2022-08-24 16:00] VITALS: BP 149/75
[2022-08-24] MEDS ORDERED: CLINDAMYCIN PHOSPHATE 600 MG/4 ML VIAL IM ONE (16:00)
[2022-08-24] MEDS: glipiZIDE 5 MG TABLET PO SCH (16:08)
[2022-08-24] MEDS: TRAZODONE 50 MG TABLET PO SCH (17:25)
[2022-08-24 20:11] VITALS: BP 130/86
[2022-08-24] MEDS: RANOLAZINE 500 MG TAB.ER.12H PO SCH (21:04)
[2022-08-24] MEDS: PRAZOSIN HCL 1 MG CAPSULE PO SCH (21:04)
[2022-08-24] MEDS: risperiDONE 1 MG TABLET PO SCH (21:04)
[2022-08-24] MEDS ORDERED: HYDROMORPHONE HCL 2 MG TABLET PO PRN (22:00)
[2022-08-25] MEDS: NORMAL SALINE IV SCH ×3 (00:11→15:13)
[2022-08-25] MEDS: CLINDAMYCIN PHOSPHATE IV SCH ×3 (00:11→15:13)
[2022-08-25 04:47] VITALS: BP 138/63
[2022-08-25] MEDS: PANTOPRAZOLE SODIUM 40 MG TABLET.DR PO SCH (06:28)
--- NOTE | 2022-08-25 07:00 | NUR ---
pt received in bed awake no c/o pain noted call light with in reach ,all needs met at this time we will continue to monitor
[2022-08-25] MEDS: glipiZIDE 5 MG TABLET PO SCH ×2 (07:05→17:25)
[2022-08-25] MEDS: BLOOD SUGAR DIAGNOSTIC 1 EACH STRIP VI SCH ×4 (07:05→22:00)
[2022-08-25] MEDS: CLOPIDOGREL 75 MG TABLET PO SCH (08:09)
[2022-08-25] MEDS: CITALOPRAM 10 MG TABLET PO SCH (08:09)
[2022-08-25] MEDS: GABAPENTIN 300 MG CAPSULE PO SCH ×3 (08:09→17:25)
[2022-08-25] MEDS: AMLODIPINE 5 MG TABLET PO SCH (08:09)
[2022-08-25] MEDS: buPROPion XL 150 MG TAB.SR.24H PO SCH (08:09)
[2022-08-25] MEDS: ISOSORBIDE MONONITRATE 60 MG TAB.SR.24H PO SCH (08:09)
[2022-08-25] MEDS: INSULIN REGULAR, HUMAN 300 UNIT/3 ML VIAL SQ PRN ×4 (08:11→22:01)
[2022-08-25] MEDS: RANOLAZINE 500 MG TAB.ER.12H PO SCH ×2 (08:36→22:00)
[2022-08-25] MEDS ORDERED: CLOPIDOGREL 75 MG TABLET PO SCH (09:00)
--- NOTE | 2022-08-25 10:31 | NUR ---
pt seen by new orders received noted and carried out
[2022-08-25 11:30] VITALS: BP 105/60
[2022-08-25 15:23] VITALS: BP 121/67
[2022-08-25] MEDS: TRAZODONE 50 MG TABLET PO SCH (17:26)
[2022-08-25 20:24] VITALS: BP 111/61
[2022-08-25] MEDS: risperiDONE 1 MG TABLET PO SCH (21:59)
[2022-08-25] MEDS: PRAZOSIN HCL 1 MG CAPSULE PO SCH (22:00)
[2022-08-25] MEDS: HYDROMORPHONE 1 MG/1 ML DISP.SYRIN IV PRN (22:25)
[2022-08-26] MEDS: NORMAL SALINE IV SCH ×3 (00:48→15:03)
[2022-08-26] MEDS: CLINDAMYCIN PHOSPHATE IV SCH ×3 (00:48→15:03)
[2022-08-26 04:11] VITALS: BP 103/54
[2022-08-26] MEDS: HYDROMORPHONE 1 MG/1 ML DISP.SYRIN IV PRN (05:49)
[2022-08-26] MEDS: PANTOPRAZOLE SODIUM 40 MG TABLET.DR PO SCH (06:09)
[2022-08-26] MEDS: BLOOD SUGAR DIAGNOSTIC 1 EACH STRIP VI SCH ×2 (06:54→11:05)
[2022-08-26 07:13] LABS: HEMATOCRIT 34.9 % (36.7-47.1); MEAN CORPUSCULAR HEMOGLOBIN 30.4 uug (23.8-33.4); PLATELET COUNT (AUTO) 130 K/uL (152-348)
[2022-08-26 07:47] LABS: BILIRUBIN,TOTAL 0.8 mg/dL (0.2-1.0); CREATININE 1.7 mg/dL (0.6-1.3); MAGNESIUM 1.7 mg/dL (1.8-2.4); PHOSPHOROUS 4.9 mg/dL (2.5-4.9); POTASSIUM 4.1 mmol/L (3.5-5.1); TOTAL PROTEIN, SERUM 8.5 g/dL (6.4-8.2)
[2022-08-26] MEDS: CLOPIDOGREL 75 MG TABLET PO SCH (08:03)
[2022-08-26] MEDS: CITALOPRAM 10 MG TABLET PO SCH (08:03)
[2022-08-26] MEDS: ISOSORBIDE MONONITRATE 60 MG TAB.SR.24H PO SCH (08:03)
[2022-08-26] MEDS: GABAPENTIN 300 MG CAPSULE PO SCH ×2 (08:03→12:04)
[2022-08-26] MEDS: RANOLAZINE 500 MG TAB.ER.12H PO SCH (08:03)
[2022-08-26] MEDS: buPROPion XL 150 MG TAB.SR.24H PO SCH (08:03)
[2022-08-26] MEDS: glipiZIDE 5 MG TABLET PO SCH (08:03)
[2022-08-26] MEDS: AMLODIPINE 5 MG TABLET PO SCH (08:04)
[2022-08-26] MEDS ORDERED: MAGNESIUM OXIDE 400 MG TABLET PO ONE (08:30)
[2022-08-26] MEDS ORDERED: IV NS 1000 ML 1,000 ML IV PRN (08:30)
[2022-08-26 09:01] LABS: *BLOOD, URINE NEGATIVE (NEGATIVE); *CLARITY,URINE CLEAR (CLEAR); *COLOR,URINE DARK YELLOW (YELLOW); *KETONES,URINE NEGATIVE (NEGATIVE); LEUKOCYTE ESTERASE ,URINE NEGATIVE (NEGATIVE); NITRITE, URINE NEGATIVE (NEGATIVE); PH,URINE 5.5 (5.0-8.0); UGLUCOSE NEGATIVE (NEGATIVE)
[2022-08-26 09:03] LABS: *BILIRUBIN,URIN 1+ (NEGATIVE)
--- NOTE | 2022-08-26 10:32 | NUR ---
in bed sleeping vs are stable call light with in reach
[2022-08-26 12:00] VITALS: BP 110/53
[2022-08-26] MEDS: INSULIN REGULAR, HUMAN 300 UNIT/3 ML VIAL SQ PRN (12:05)
--- NOTE | 2022-08-26 12:44 | NUR ---
WOUND CARE CONSULT: PT PRESENTS WITH SCARRING TO TOP OF HEAD, PRESENT ON ADMISSION. NO OPEN AREAS NOTED. WILL SEE PRN.
[2022-08-26] MEDS ORDERED: GLIP5TAB13 PO (14:59)
[2022-08-26] MEDS ORDERED: CLIN300C12 PO (14:59)
[2022-08-26] MEDS ORDERED: ACID1TAB4 PO (14:59)
--- NOTE | 2022-08-26 15:50 | NUR ---
dc orders received noted and carried out,dc instruction and education given to the pt,dc midline per md orders,pt said he will follow up with his pcp in one week.pt left the facility via private car in stable condition
[2022-08-26 15:57] VITALS: BP 109/59
[2022-08-26 22:19] LABS: RBC,URINE 0-3 /HPF (0-3); WBC,URINE 0-3 /HPF (0-3)
[2022-08-29 05:06] LABS: A/G RATIO 0.5 (0.7-1.7); ALBUMIN 2.8 g/dL (2.9-4.4); ALPHA-1-GLOBULIN 0.3 g/dL (0.0-0.4); BETA GLOBULIN 1.2 g/dL (0.7-1.3); GAMMA GLOBULIN 2.7 g/dL (0.4-1.8); GLOBULIN, TOTAL 5.2 g/dL (2.2-3.9); M-SPIKE 0.8 g/dL (Not Observed)
== END 2022-08-26 15:45 | disposition home or self-care (01) | DRG 157 ==
LOC: ER 19:06 → TELE3 08-24 00:42 → MEDSURG3 08-24 09:25
PROVIDERS: ADMIT Nurse Practitioner Acute Care; ATTEND Internal Medicine
PROC: 05HB33Z Insertion of Infusion Device into Right Basilic Vein, Percutaneous Approach (ICD-10-PCS; principal; 2022-08-25)
DX: K04.7 Periapical abscess without sinus (principal); N17.0 Acute kidney failure with tubular necrosis; L03.211 Cellulitis of face; E87.1 Hypo-osmolality and hyponatremia; I13.0 Hypertensive heart and chronic kidney disease with heart failure and stage 1 through stage 4 chronic kidney disease, or unspecified chronic kidney disease; I50.32 Chronic diastolic (congestive) heart failure; R07.9 Chest pain, unspecified; E11.65 Type 2 diabetes mellitus with hyperglycemia; E11.42 Type 2 diabetes mellitus with diabetic polyneuropathy; Z79.4 Long term (current) use of insulin; E66.9 Obesity, unspecified; Z68.30 Body mass index [BMI] 30.0-30.9, adult; Z20.822 Contact with and (suspected) exposure to COVID-19; F39 Unspecified mood [affective] disorder; G89.29 Other chronic pain; E11.22 Type 2 diabetes mellitus with diabetic chronic kidney disease; I25.10 Atherosclerotic heart disease of native coronary artery without angina pectoris; E78.5 Hyperlipidemia, unspecified; J32.0 Chronic maxillary sinusitis; I25.2 Old myocardial infarction; N18.9 Chronic kidney disease, unspecified; Z88.1 Allergy status to other antibiotic agents; Z79.899 Other long term (current) drug therapy; I35.1 Nonrheumatic aortic (valve) insufficiency; F19.10 Other psychoactive substance abuse, uncomplicated; D64.9 Anemia, unspecified; Z95.5 Presence of coronary angioplasty implant and graft; Z95.1 Presence of aortocoronary bypass graft; R74.01 Elevation of levels of liver transaminase levels; Z88.6 Allergy status to analgesic agent; Z76.5 Malingerer [conscious simulation]; Z79.02 Long term (current) use of antithrombotics/antiplatelets; Z88.0 Allergy status to penicillin; Z86.19 Personal history of other infectious and parasitic diseases
CPT/HCPCS: 36415; 70486; 71045; 76770; 83735; 83935; 83970; 84100; 84155; 84165; 84300; 84484; 85025; 93005; A4663; C9113; G0378; J1170; J1815; J3490; J7040; Q0162; Q0163

== ENCOUNTER 2022-08-28 18:09 | Emergency (ER) | payer BC, MEDICARE ==
[~2022-08-28] VITALS: Ht 175.3 cm; Wt 95.3 kg
[~2022-08-28 18:09] MED LIST changes: +ACID1TAB4 PO; -BUPR1FIL5 SL; -CARV25TA2 PO; +CLIN300C12 PO; -CLON0.1T PO; -FOLI1TAB94 PO; +GLIP5TAB13 PO; -ONDA4TAB11 PO; -QUET50TA PO; -ROSU40TA PO; -TADA5TAB2 PO; -THIA100T74 PO
[2022-08-28 18:56] LABS: HEMATOCRIT 32.9 % (36.7-47.1); MEAN CORPUSCULAR HEMOGLOBIN 30.2 uug (23.8-33.4); MEAN CORPUSCULAR VOLUME 92.8 fL (73.0-96.2); PLATELET COUNT (AUTO) 123 K/uL (152-348)
--- NOTE | 2022-08-28 18:56 | NUR ---
PT IS IN ROOM #1B. DR GRIFFITH EVALUATED THE PT.
--- NOTE | 2022-08-28 19:13 | NUR ---
REPORT RECEIVED FROM JANAE RAMIREZ. PT A,A AND O X 4 WITH C/O CP 12/19 RADIATING TO L JAW AND L ARM. AWARE,.
[2022-08-28 19:21] LABS: ALANINE AMINOTRANSFERASE 62 U/L (16-63); ALKALINE PHOSPHATASE 172 U/L (50-136); ASPARTATE AMINOTRANSFERASE 38 U/L (15-37); BILIRUBIN,DIRECT 0.2 mg/dL (0.0-0.2); BILIRUBIN,TOTAL 0.6 mg/dL (0.2-1.0); CARBON DIOXIDE 24 mmol/L (21-32); CHLORIDE 99 mmol/L (98-107); CREATININE 1.5 mg/dL (0.6-1.3); POTASSIUM 4.7 mmol/L (3.5-5.1); TOTAL PROTEIN, SERUM 8.2 g/dL (6.4-8.2); UREA NITROGEN, BLOOD 16 mg/dL (7-18)
[2022-08-28 19:24] LABS: GLUCOSE 357 mg/dL (74-106)
--- NOTE | 2022-08-28 21:00 | NUR ---
PT REQUESTING TO LEAVE. MD AWARE. PT REQUESTED HIS IV TO BE D/C'D
--- NOTE | 2022-08-28 21:03 | NUR ---
WILL SPEAK WITH PT.
--- NOTE | 2022-08-28 21:10 | NUR ---
Patient does not wish to proceed with medical care recommended by Dr. ALEGRIA ). Patient given information related to possible complications, up to and including , which could occur as a result of leaving the hospital at this time. Patient verbalizes understanding of risks involved due to leaving against medical advice. Patient has signed AMA form. PT REFUSED TO WAIT FOR THE MD AND TO SIGN AMA FORM. IV D/C'D. PT AMB OUT WITH STEADY GAIT AND NAD OBSERVED.
== END 2022-08-28 21:10 | disposition left against medical advice (07) ==
LOC: ER 18:09
DX: R07.89 Other chest pain (principal); E11.65 Type 2 diabetes mellitus with hyperglycemia; R74.01 Elevation of levels of liver transaminase levels; E46 Unspecified protein-calorie malnutrition; Z68.31 Body mass index [BMI] 31.0-31.9, adult; E11.9 Type 2 diabetes mellitus without complications; E78.5 Hyperlipidemia, unspecified; Z95.1 Presence of aortocoronary bypass graft; Z88.0 Allergy status to penicillin; Z88.1 Allergy status to other antibiotic agents; Z88.5 Allergy status to narcotic agent; Z88.6 Allergy status to analgesic agent; Z79.4 Long term (current) use of insulin; Z79.2 Long term (current) use of antibiotics; Z79.01 Long term (current) use of anticoagulants; Z79.899 Other long term (current) drug therapy
CPT/HCPCS: 36415; 71045; 84484; 85025; 93005; A4663